=== PATIENT | female | born 1990 | race Caucasian/White ===

== ENCOUNTER 2021-11-21 10:19 | Emergency (ER) | payer OTHER, MEDICAID ==
[~2021-11-21] VITALS: Ht 153 cm; Wt 57.7 kg
[2021-11-21] MEDS ORDERED: IBUP200C5 PO (10:24)
[2021-11-21] MEDS ORDERED: SULF-261 PO (11:43)
[2021-11-21 12:46] VITALS: BP 111/64
== END 2021-11-21 13:02 | disposition home or self-care (01) ==
LOC: EMS 10:19
DX: L05.01 Pilonidal cyst with abscess (principal)
CPT/HCPCS: 99283; Z7502